=== PATIENT | female | born 1965 | race Caucasian/White ===

== ENCOUNTER → 2017-09-03 | Outpatient (CLI) | payer OTHER ==
--- NOTE | 2017-09-03 14:13 | Diagnostic Imaging Report ---
EXAMINATION: Bone survey. INDICATION: Monoclonal gammopathy. FINDINGS: Nonspecific lucencies are seen in the skull with no definite lytic lesion. Degenerative changes in the cervical spine are noted. The thoracic spine demonstrates mild degenerative change. Minimal degenerative changes in the lumbar spine are seen. There is mild degenerative sclerotic change in the SI joints and in the hip joints. There is a lesion with sclerotic margins seen in the right femoral neck measuring 4 x 3 cm. This is atypical for myeloma and might represent an incidental benign lesion such as fibrous dysplasia. The upper and lower extremity x-rays otherwise appear unremarkable. IMPRESSION: There is a 4 x 3 cm lucent lesion with sclerotic rim in the right femoral neck favored to be an incidental benign bone lesion rather than myeloma or plasmacytoma. Dictated by: Dictated on workstation # [id number]
== END ==
LOC: RAD 11:37
PROVIDERS: ATTEND Internal Medicine Hematology & Oncology
DX: M85.861 Other specified disorders of bone density and structure, right lower leg (principal); D47.2 Monoclonal gammopathy
CPT/HCPCS: 77075

== ENCOUNTER → 2017-09-23 | Outpatient (CLI) | payer OTHER ==
--- NOTE | 2017-09-24 10:38 | Diagnostic Imaging Report ---
EXAMINATION: PET-CT TECHNIQUE: Serum glucose level at the time of the study is: 153 mg/dL. 13.1 mCi of FDG was administered intravenously followed by obtaining PET images with corresponding noncontrast CT scan images. The CT scan was performed for anatomic correlation and attenuation correction and was not performed according to the diagnostic protocol of the areas covered. The scan was performed from the head to mid thighs. INDICATION: Monoclonal abdomino jackie. Abnormality in right femoral neck seen on the bone survey with a radiolucent lesion measuring 4 x 3 CM. FINDINGS: The lytic lesion with sclerotic margin in the right femoral neck is seen with no associated hypermetabolism seen compatible with benign etiology such as fibrous dysplasia. The brain has symmetric FDG uptake. No suspicious hypermetabolism is seen in the neck. The chest demonstrate no hypermetabolic mass. In the abdomen and pelvis the expected urinary tract excretion of the tracer is seen with no suspicious hypermetabolism noted. The bowel loops demonstrate increased activity that is generally probably physiologic. There is however a focal intense FDG uptake with maximum SUV of 9 seen in the cecum. This appears to be associated with slight nonspecific fullness in the area near the ileocecal valve. Evaluation with colonoscopy is recommended. The osseous structures demonstrate no concerning hypermetabolic lesion. IMPRESSION: 1. 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 2. Intense focal increased FDG uptake in the cecum with suggestion of mild fullness on the localizer CT scan. Evaluation with colonoscopy is recommended to rule out underlying mass. The findings were discussed with Dr. Price at time of dictation. Dictated by: Dictated on workstation # [id number]
== END ==
LOC: RAD 12:25
PROVIDERS: ATTEND Internal Medicine Hematology & Oncology
DX: D47.2 Monoclonal gammopathy (principal)

== ENCOUNTER 2017-10-09 14:42 | Outpatient (RCR) | payer OTHER ==
[2017-09-03 11:35] LABS: URIC ACID 8.1 MG/DL (2.6-7.2)
[2017-09-24 10:45] LABS: ABSOLUTE RETIC # 67 10e9/L (24-90); BASOPHILS # (AUTO) 0.1 10^3/uL (0.0-0.1); BASOPHILS % (AUTO) 1 % (0-10); EOSINOPHILS # (AUTO) 0.2 10^3/uL (0.0-0.3); EOSINOPHILS % (AUTO) 2 % (0-10); HEMATOCRIT 42 % (35-52); HEMOGLOBIN 13.6 G/DL (11.5-16.0); LYMPHOCYTES # (AUTO) 4.4 X 10^3 (1.0-4.0); LYMPHOCYTES % (AUTO) 45 % (12-44); MEAN CORPUSCULAR HEMOGLOBIN 32 PG (25-34); MEAN CORPUSCULAR HGB CONC 32 G/DL (32-36); MEAN CORPUSCULAR VOLUME 98 FL (80-99); MEAN PLATELET VOLUME 10.9 FL (7.4-10.4); MONOCYTES # (AUTO) 0.7 X 10^3 (0.0-1.0); MONOCYTES % (AUTO) 7 % (0-12); NEUTROPHILS # (AUTO) 4.5 X 10^3 (1.8-7.8); NEUTROPHILS % (AUTO) 46 % (42-75); PLATELET COUNT 261 10^3/uL (130-400); RED BLOOD COUNT 4.31 10^6/uL (4.35-5.85); RED CELL DISTRIBUTION WIDTH 12.8 % (10.0-14.5); RETICULOCYTE % 1.56 % (0.50-2.40); WHITE BLOOD COUNT 9.8 10^3/uL (4.3-11.0)
[2017-09-24 11:05] LABS: BAND NEUTROPHILS 0 %; BASOPHILS % (MANUAL) 0 %; EOSINOPHILS % (MANUAL) 4 %; LYMPHOCYTES % (MANUAL) 38 %; MONOCYTES % (MANUAL) 5 %; NEUTROPHILS % (MANUAL) 46 %; POIKILOCYTOSIS MODERATE; REACTIVE LYMPHOCYTES 7 %; ROULEAUX SLIGHT; SMUDGE CELLS SLIGHT; STOMATOCYTES MODERATE
== END 2017-12-02 | disposition home or self-care (01) ==
LOC: ONC 14:42
PROVIDERS: ATTEND Internal Medicine Hematology & Oncology
DX: D47.2 Monoclonal gammopathy (principal); I10 Essential (primary) hypertension; E03.9 Hypothyroidism, unspecified; K21.9 Gastro-esophageal reflux disease without esophagitis; M19.91 Primary osteoarthritis, unspecified site; E66.9 Obesity, unspecified; Z68.35 Body mass index [BMI] 35.0-35.9, adult; Z79.899 Other long term (current) drug therapy
CPT/HCPCS: 36415; 38221; 82232; 82570; 82784; 83615; 83883; 84155; 84156; 84165; 84166; 84550; 85007; 85027; 85045; 88184; 88185; 88237; 88264; 88280; 88305; 88311; 88313; 99213